=== PATIENT | female | born 1960 | race Caucasian/White ===

== ENCOUNTER → 2016-02-16 | Outpatient (CLI) | payer BC ==
[~2016-02-16] MED LIST: CANA1TAB3 PO; JANUVIA PO; METF-384 PO
--- NOTE | 2016-02-16 15:47 | MAMMOGRAPHY REPORT ---
UNILATERAL RIGHT DIGITAL DIAGNOSTIC MAMMOGRAM TOMOSYNTHESIS AND TARGETED RIGHT ULTRASOUND: 02/16/2016 CLINICAL HISTORY: 56-year-old woman called back from screening mammography for a small, 3.5 mm angul ar and irregular asymmetry in the superior posterior right breast, only seen on the MLO view. Famil y history of breast cancer = mother. TECHNIQUE: Spot compression CC and MLO tomosynthesis images of the right breast with reconstructed C -view were obtained. COMPARISON: Comparison is made to exams dated: 02/09/2016 mammogram, 09/28/2014 mammogram, 09/25/2013 mammogram, 10/05/2011 mammogram, and 08/12/2005 mammogram - [facility]. BREAST COMPOSITION: There are scattered areas of fibroglandular density in the right breast. FINDINGS: There is partial effacement of the 3-4 mm nodular asymmetry in the superior posterior rig ht breast on one of the spot compression MLO views, but this asymmetry persists on the repeat spot c ompression MLO view. No definite corresponding abnormality is identified on the spot compression CC views. There is no focal area of architectural distortion or cluster of suspicious microcalcificat ion. Real-time high-resolution ultrasound was performed out the superior right breast. No suspicious jessica id or cystic mass is identified. IMPRESSION: ACR BI-RADS CATEGORY 0: INCOMPLETE EVALUATION: NEED ADDITIONAL IMAGING EVALUATION, TAR GETED ULTRASOUND ACR BI-RADS CATEGORY 0: INCOMPLETE EVALUATION: NEED ADDITIONAL IMAGING EVALUATION There is questionable partial effacement of the 3-4 mm angular asymmetry in the superior posterior r ight breast, only seen on the MLO view. No suspicious sonographic correlate was identified. Althou gh this could represent normal overlapping fibroglandular tissue, given the strong family history of breast cancer, a contrast-enhanced breast MRI is recommended to exclude the possibility of a small enhancing mass. These results and recommendations were discussed with the patient at the time of the exam. Approximately 10% of breast cancers are not detected with mammography. A negative mammographic repor t should not delay biopsy if a clinically suggestive mass is present. Silva Joseph M.D. ay/:02/16/2016 12:43:36 Oil Burner: Lissette DE JESUS(Annika)(Mariza), [facility] letter sent: Addl Imaging 0 BI-RADS Code: ACR BI-RADS Category 0: Incomplete Evaluation: Need Additional Imaging Evaluation Ul trasound BI-RADS: ACR BI-RADS Category 0: Incomplete Evaluation: Need Additional Imaging Evaluation
== END | disposition home or self-care (01) ==
LOC: C.MAMM 11:06
PROVIDERS: ATTEND Obstetrics & Gynecology
DX: N63 Unspecified lump in breast (principal)

== ENCOUNTER → 2016-02-22 | Outpatient (CLI) | payer BC ==
[~2016-02-22] MED LIST changes: +GADAVIST IV PRN
--- NOTE | 2016-02-23 13:58 | MAMMOGRAPHY REPORT ---
BREAST MRI OF BOTH BREASTS : 02/22/2016 CLINICAL HISTORY: Right superior posterior asymmetry with questionable architectural distortion, but no sonographic correlate. A bilateral breast MRI was obtained to exclude a small spiculated enhanc ing mass. COMPARISON: Comparison is made to exams dated: 02/16/2016 mammogram, 02/09/2016 mammogram, 09/28/2014 mammogram, 09/25/2013 mammogram, 10/05/2011 mammogram, and 08/12/2005 mammogram - [facility]. TECHNIQUE: Using a 1.5 Carito magnet and dedicated breast coil, multisequence axial images were obtai carlene through the breasts. After uneventful IV administration of 7 mL of Gadavist, dynamic multiphase contrast-enhanced axial images, and sagittal postcontrast were obtained. Temporal subtraction axia l images and 3-D MIP images are provided. Everything was then reviewed on a 3-D workstation, [employer]. FINDINGS: Right breast: There is no significant background parenchymal enhancement. There is no evidence of a suspicious enhancing mass, non-mass enhancement, architectural distortion or suspicious kinetics wi thin the right breast, with particular attention to the superior posterior breast in the location of the asymmetry with questionable architectural distortion seen mammographically. Therefore, this fi nding is considered benign and recommend return to annual screening mammography schedule. No focal skin thickening or nipple retraction. No right axillary lymphadenopathy. Left breast: There is no significant background parenchymal enhancement. There is no evidence of a suspicious enhancing mass, non-mass enhancement, architectural distortion or suspicious kinetics wit hin the left breast. No focal skin thickening or nipple retraction. No left axillary lymphadenopat hy. Although the neck is suboptimally evaluated given that it is not within the [id number], and enlar ged left thyroid lobe is identified, measuring up to 3.3 cm, which may be due to the presence of mul tiple nodules. Correlation with prior thyroid imaging is recommended. IMPRESSION: ACR BI-RADS CATEGORY 2: BENIGN 1. There is no evidence of a suspicious enhancing mass, non-mass enhancement, architectural distort ion or suspicious kinetics within the breasts, with particular attention to the superior posterior r ight breast in the area of mammographic asymmetry. Therefore, this finding is considered benign and recommend return to annual screening mammography schedule. Overall, there is no MRI evidence of ma lignancy in the breasts. 2. Incidental note is made of an enlarged left thyroid lobe which can be secondary to the presence of nodules. Correlation with prior thyroid imaging is recommended. The patient will receive written notification of the results. Silva Joseph M.D. ay/:02/22/2016 17:14:08 Address Change Clerk: terminal operations manager, [facility] letter sent: Normal 1/2 BI-RADS Code: ACR BI-RADS Category 2: Benign
== END | disposition home or self-care (01) ==
LOC: C.MRI 06:27
PROVIDERS: ATTEND Obstetrics & Gynecology
DX: R92.8 Other abnormal and inconclusive findings on diagnostic imaging of breast (principal); E04.9 Nontoxic goiter, unspecified

== ENCOUNTER → 2016-08-23 | Outpatient (CLI) | payer BC ==
[~2016-08-23] MED LIST changes: -GADAVIST IV PRN
--- NOTE | 2016-08-23 12:30 | DIAGNOSTIC IMAGING REPORT ---
ULTRASOUND OF THE THYROID GLAND CLINICAL HISTORY: Hypothyroidism. COMPARISON STUDY: Thyroid ultrasound dated 06/15/2015 and 08/11/2004. TECHNIQUE: Real-time, grayscale, and color flow sonography of the thyroid gland is performed utilizing a high-frequency linear transducer. Images are reviewed in the transverse and longitudinal planes. FINDINGS: Right lobe: The right lobe of the thyroid gland is normal in size and homogeneous in echotexture, measuring 4.9 x 1.5 x 1.1 cm. A hypoechoic nodule in the anterior midpole measures 1.0 x 0.6 x 0.9 cm A 4 mm hypoechoic nodule is incidentally noted in the lower pole. Left lobe: The left lobe of the thyroid gland is mildly enlarged, measuring 5.6 x 2.1 x 2.2 cm. A hypoechoic solid nodule in the mid to lower pole measures 3.3 x 2.3 x 3.6 cm (previously measured 3.5 x 2.6 x 3.3 cm). Isthmus: The thyroid isthmus is normal in appearance and measures 0.3 cm in AP diameter. IMPRESSION: 1. A dominant nodule in the left thyroid lobe has not significantly changed in appearance from prior studies. 2. Additional smaller nodules are also not significantly changed. Electronically signed by: Roni Ceron M.D. 08/23/2016 12:28 PM Dictated Date/Time: 08/23/2016 12:23 PM
== END | disposition home or self-care (01) ==
LOC: C.ULTR 11:32
PROVIDERS: ATTEND Internal Medicine Endocrinology, Diabetes & Metabolism
DX: E04.2 Nontoxic multinodular goiter (principal); E03.9 Hypothyroidism, unspecified

== ENCOUNTER → 2017-02-23 | Outpatient (CLI) | payer OTHER | END | disposition home or self-care (01) | LOC: C.PAPS 12:02 | PROVIDERS: ATTEND Physician Assistant | DX: Z12.4 Encounter for screening for malignant neoplasm of cervix (principal); Z78.0 Asymptomatic menopausal state ==

== ENCOUNTER → 2017-03-08 | Outpatient (CLI) | payer OTHER ==
--- NOTE | 2017-03-08 13:44 | MAMMOGRAPHY REPORT ---
BILATERAL DIGITAL SCREENING MAMMOGRAM TOMOSYNTHESIS WITH CAD: 03/08/2017 CLINICAL HISTORY: Routine screening. Patient has no complaints. TECHNIQUE: Breast tomosynthesis in addition to standard 2D mammography was performed. Current study was also evaluated with a Computer Aided Detection (CAD) system. COMPARISON: Comparison is made to exams dated: 02/22/2016 breast MRI, 02/16/2016 ultrasound, 02/16/2016 m ammogram, 02/09/2016 mammogram, 09/28/2014 mammogram, and 09/25/2013 mammogram - [facility]. BREAST COMPOSITION: There are scattered areas of fibroglandular density in both breasts. FINDINGS: No suspicious masses, calcifications, or areas of architectural distortion are noted in ei ther breast. There has been no significant interval change compared to prior exams. Scattered bilater al benign-appearing calcifications are not significantly changed. IMPRESSION: ACR BI-RADS CATEGORY 2: BENIGN There is no mammographic evidence of malignancy. A 1 year screening mammogram is recommended. The pa tient will receive written notification of the results. Approximately 10% of breast cancers are not detected with mammography. A negative mammographic report should not delay biopsy if a clinically suggestive mass is present. Nell Bedolla M.D. /:03/08/2017 07:45:33 Underwriting Director: Lissette FERRARI)(M), [facility] letter sent: Normal 1/2 BI-RADS Code: ACR BI-RADS Category 2: Benign
== END | disposition home or self-care (01) ==
LOC: C.MAMM 07:32
PROVIDERS: ATTEND Physician Assistant
DX: Z12.31 Encounter for screening mammogram for malignant neoplasm of breast (principal)